=== PATIENT | male | born 1970 | race Caucasian/White ===

== ENCOUNTER 2018-11-22 12:29 | Day surgery (SDC) | payer MEDICARE, MEDICAID ==
[~2018-11-22] VITALS: Ht 157.5 cm; Wt 64.5 kg
[2018-11-22] MEDS ORDERED: MOTRIN 800800 MG/TAB PO (13:23)
[2018-11-22] MEDS ORDERED: TOPROL XL100 MG PO (13:24)
[2018-11-22] MEDS ORDERED: PROTONIX 40MG T40 MG PO (13:24)
[2018-11-22] MEDS ORDERED: HCTZ 25MG TAB25 MG PO (13:25)
[2018-11-22] MEDS ORDERED: DIOVAN 80MG80 MG PO (13:25)
[2018-11-22 13:27] VITALS: BP 137/96; PULSE 52; TEMP 98.6
--- NOTE | 2018-11-22 13:47 | NUR ---
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
[2018-11-22 14:50] VITALS: BP 128/83; PULSE 67; TEMP 97.6
--- NOTE | 2018-11-22 14:50 | NUR ---
Patient arrives to post-op bay 1 via cart, accompanied by Endo RN Nadira. He is alert and oriented, awake. He ambulates with ease to chair in room. Monitoring applied - VSS and WNL on room air. Bedside report received. Gag reflex intact. Offered and receives water and a muffin to eat - tolerates well. Call light in reach. Friend at bedside. Will continue to monitor.
[2018-11-22 15:05] VITALS: BP 124/91; PULSE 64
[2018-11-22 15:20] VITALS: BP 121/84; PULSE 59
--- NOTE | 2018-11-22 15:20 | NUR ---
Patient is resting comfortably in room. Denies any pain, nausea, or need.
--- NOTE | 2018-11-22 15:44 | NUR ---
Discharge criteria has been met. Discharge instructions discussed, denies any questions, and verbalizes understanding. PIV removed with catheter intact and hemostasis achieved. Changes to clothing independently. Escorted to exit. Discharged to home with ride in private vehicle at 1544.
== END 2018-11-22 15:44 | disposition home or self-care (01) ==
LOC: SDCO 12:29
DX: K21.9 Gastro-esophageal reflux disease without esophagitis (principal); K44.9 Diaphragmatic hernia without obstruction or gangrene; K29.30 Chronic superficial gastritis without bleeding
CPT/HCPCS: OP; J2250; J3010; J7030